=== PATIENT | male | born 1975 | race Asian ===

== ENCOUNTER 2019-06-22 06:05 | Day surgery (SDC) | payer OTHER ==
[~2019-06-22] VITALS: Ht 185.4 cm; Wt 99.8 kg
[2019-06-22 06:51] VITALS: BP 134/90
[2019-06-22 12:01] VITALS: BP 115/79
== END 2019-06-22 12:35 | disposition home or self-care (01) ==
LOC: DS 06:05 → OR 07:30 → DS 07:30 → OR 08:30 → DS 12:35
DX: S92.321A Displaced fracture of second metatarsal bone, right foot, initial encounter for closed fracture (principal); S92.331A Displaced fracture of third metatarsal bone, right foot, initial encounter for closed fracture; S92.341A Displaced fracture of fourth metatarsal bone, right foot, initial encounter for closed fracture; I10 Essential (primary) hypertension; F31.9 Bipolar disorder, unspecified; F41.9 Anxiety disorder, unspecified; F17.200 Nicotine dependence, unspecified, uncomplicated; E78.5 Hyperlipidemia, unspecified; W19.XXXA Unspecified fall, initial encounter; Y93.39 Activity, other involving climbing, rappelling and jumping off; Y92.89 Other specified places as the place of occurrence of the external cause; Y99.8 Other external cause status
CPT/HCPCS: C1713; J0690; J2001; J2175; J2250; J2405; J2704; J3010; J3490; J7120; Q0092